=== PATIENT | female | born 1935 ===

== ENCOUNTER 2021-10-10 10:07 | Emergency (ER) | payer MEDICARE ==
[~2021-10-10] VITALS: Ht 157.5 cm; Wt 50.0 kg
[2021-10-10] MEDS ORDERED: SINEMET 25/1001 TAB PO (10:44)
[2021-10-10] MEDS ORDERED: ELIQUIS2.5 MG PO (10:45)
[2021-10-10] MEDS ORDERED: LIPITOR10 M1 PO (10:45)
[2021-10-10] MEDS ORDERED: METOPROL TAR25 M1 PO (10:46)
[2021-10-10] MEDS ORDERED: VITAMIN B-12500 MCG PO (10:46)
[2021-10-10] MEDS ORDERED: DONEPEZIL10 MG PO (10:47)
[2021-10-10] MEDS ORDERED: CEFPODOXIME PR100 MG PO (10:47)
[2021-10-10] MEDS ORDERED: AMOXICILLIN500 MG PO (13:48)
[2021-10-10 14:03] VITALS: BP 196/104
== END 2021-10-10 14:33 | disposition home or self-care (01) ==
LOC: ED 10:07
PROC: 0HQLXZZ Repair Left Lower Leg Skin, External Approach (ICD-10-PCS; principal; 2021-10-10)
DX: S81.812A Laceration without foreign body, left lower leg, initial encounter (principal); I10 Essential (primary) hypertension; G20 Parkinson's disease; F02.80 Dementia in other diseases classified elsewhere, unspecified severity, without behavioral disturbance, psychotic disturbance, mood disturbance, and anxiety; I48.91 Unspecified atrial fibrillation; W18.2XXA Fall in (into) shower or empty bathtub, initial encounter; Y93.E1 Activity, personal bathing and showering; Y92.002 Bathroom of unspecified non-institutional (private) residence as the place of occurrence of the external cause